=== PATIENT | female | born 1940 | race Caucasian/White ===

== ENCOUNTER 2022-11-17 13:25 | Emergency (ER) | payer OTHER ==
[~2022-11-17] VITALS: Ht 149.9 cm; Wt 57.2 kg
[2022-11-17] MEDS ORDERED: SYNTHROID50 MCG PO (13:35)
== END 2022-11-17 18:33 | disposition home or self-care (01) ==
LOC: ER 13:25
DX: R42 Dizziness and giddiness (principal); I10 Essential (primary) hypertension; Z20.822 Contact with and (suspected) exposure to COVID-19; Z88.0 Allergy status to penicillin